=== PATIENT | female | born 1935 | race Caucasian/White ===

== ENCOUNTER → 2017-08-05 | Outpatient (CLI) | payer MEDICARE, OTHER | LOC: RAD 17:54 | DX: R22.41 Localized swelling, mass and lump, right lower limb (principal); M25.561 Pain in right knee ==

== ENCOUNTER → 2023-10-28 | Outpatient (CLI) | payer MEDICARE, OTHER ==
[~2023-10-28] MED LIST: GOOD NEIGHBOR M25 M1 PO
[2023-10-28 11:20] LABS: HEMATOCRIT 39.9 % (37.0-47.0); HEMOGLOBIN 12.8 g/dL (12.5-16.0); MEAN CELL VOLUME 90 fl (78-100); MEAN CORPUSCULAR HEMOGLOBIN 29 pg (27-31); MEAN CORPUSCULAR HGB CONC 32 g/dL (33-37); MEAN PLATELET VOLUME 9.6 fl (7.4-10.4); PLATELET COUNT 191 K/mm3 (130-400); RED BLOOD COUNT 4.43 M/mm3 (4.10-5.30); RED CELL DISTRIBUTION WIDTH 14.1 % (11.5-14.5)
[2023-10-28 11:26] LABS: ALBUMIN 4.5 g/dL (3.4-4.8)
[2023-10-28 11:27] LABS: CALCIUM 9.4 mg/dL (8.3-10.5)
[2023-10-28 11:29] LABS: TOTAL PROTEIN 6.1 g/dL (6.2-8.1)
[2023-10-28 11:31] LABS: TOTAL BILIRUBIN 0.7 mg/dL (0.2-1.2)
[2023-10-28 11:57] LABS: MONOCYTE 2 % (3-10); NEUTROPHILS 7 % (42-75)
[2023-10-28 12:00] LABS: LYMPHOCYTE 91 % (20-51)
== END ==
LOC: LAB 11:03
PROVIDERS: Physician Assistant
DX: Z13.220 Encounter for screening for lipoid disorders (principal); R53.83 Other fatigue